=== PATIENT | female | born 1970 | race Caucasian/White ===

== ENCOUNTER 2024-04-12 07:30 | Day surgery (SDC) | payer OTHER ==
[~2024-04-12] VITALS: Ht 172.7 cm; Wt 88.5 kg
[2024-04-12] MEDS ORDERED: MEPERIDINE 100 MG INJ. 100 MG/ML VIAL ONE (07:58)
[2024-04-12] MEDS ORDERED: MIDAZOLAM HCL 5 MG/5 ML VIAL ONE ×2 (07:58→09:01)
[2024-04-12 08:11] LABS: HCG,QUAL RESULT NEGATIVE (NEGATIVE)
[2024-04-12] MEDS ORDERED: SIMETHICONE 40 MG/0.6 ML ML ONE (08:19)
[2024-04-12] MEDS ORDERED: ONDANSETRON HCL 4 MG/2 ML VIAL ONE (09:09)
[2024-04-12 11:29] VITALS: TEMP 98.2; O2SAT 68
[2024-04-12 13:18] VITALS: BP_SYST 113; PULSE 71; RESP 12
== END 2024-04-12 09:52 | disposition home or self-care (01) ==
LOC: SDS 07:30 → SMU 07:37 → SDS 09:52
PROVIDERS: ATTEND Internal Medicine
DX: Z12.11 Encounter for screening for malignant neoplasm of colon (principal); K63.5 Polyp of colon; K64.8 Other hemorrhoids; Z87.891 Personal history of nicotine dependence
CPT/HCPCS: 45385; 99152; 84703; 88305; G0378; J2250; J2405; J2175